=== PATIENT | female | born 1975 | race Caucasian/White ===

== ENCOUNTER 2017-01-13 17:58 | Emergency (ER) | payer SELFPAY ==
[2017-01-13 18:09] VITALS: BP 128/85
[2017-01-13 19:11] LABS: CHLORIDE,CL 103 mmol/L (98-107); SODIUM,NA 139 mmol/L (136-145)
[2017-01-13 19:28] LABS: ACETAMINOPHEN 0 ug/ml (10-30)
--- NOTE | 2017-01-14 08:04 | ER ---
Date of Service: 01/13/2017 SUBJECTIVE: Danika presents to the emergency room acutely suicidal. She had barricaded herself in residence here in [place] and was threatening to commit suicide with her boyfriend's pistol. The patient had called her mother complaining of suicidal ideation, who contacted [place] [employer], who did a welfare check on the patient. The patient has a long-standing history of bipolar disorder and has had suicide attempts in the past. Her last hospitalization was approximately 3 years ago in [place] for approximately 40 days. She states that she has been off her bipolar medications for approximately 3 months. She does have a history of bipolar disorder, but states that she has not been manic for at least 10 years. She states that typically she is extremely depressed. Current stressors are primarily due to problems with her children. She states that her 16 and 14-year-old daughter and son will not talk to her and she states that her 19-year-old son is suffering from mental illness and was suicidal this past weekend as well. She states that she did go to [place] this weekend to see family and she states that this has been extremely stressful for her. She states that she has not taken any medications or attempted to overdose with a suicide attempt. She was not belligerent with Law Enforcement and however, she was at [facility]. She did refuse to come out of the house and they did have to go into the residence to retrieve her at [facility]. PAST MEDICAL HISTORY: Bipolar disorder. Please see history of present illness. MEDICATIONS: None. ALLERGIES: Latex. REVIEW OF SYSTEMS: General: No fever or chills. HEENT: No sore throat, rhinorrhea, or congestion. Respiratory: No shortness of breath. Cardiac: Denies any substernal chest pain. No jaw, arm, neck, or back pain. GI: No nausea, vomiting, or diarrhea. No melena, hematochezia, or hematemesis. : Denies any dysuria. Musculoskeletal: No myalgias or arthralgias. PHYSICAL EXAMINATION: General: This is a 41-year-old female patient, in no acute distress. Vital Signs: Blood pressure is 128/85, pulse rate is 93, temperature is 35.9, respiratory rate 18, and O2 saturations 96%. Skin: Warm, pink, and dry. HEENT: Mouth, oral mucosa is moist. No erythema or exudate noted in the hypopharynx. Neck: Supple without masses. There is no lymphadenopathy. Lungs: Clear to auscultation. Heart: Regular rate and rhythm. Neurologic: She is alert and answers all questions appropriately. Her speech is fluent. Her gait is within normal limits. Psychiatric: She is tearful and crying, does again admit to being acutely suicidal. Her insight is otherwise normal. She is very cooperative and pleasant with ER staff. LABORATORY DATA: CBC was obtained. WBC is 10.7, hemoglobin is 14.3, platelets are 234. Chemistry, sodium is 139, potassium is 4.2, chloride is 103, bicarb is 26, BUN is 11, creatinine is 0.9. GFR is greater than 60. Glucose is 87, calcium is 9.4, corrected calcium is 9.32, total bilirubin is 0.5, AST is 18, ALT is 28, alkaline phosphatase is 104, total protein is 7.5, albumin is 4.1, TSH is 1.69, blood alcohol was less than 3. Acetaminophen level was pending as is her urinalysis and urine drug screen, and her urine hCG. ASSESSMENT: Suicidal ideation. PLAN: I did speak with Angeles, who was the screener on-call at [facility]. She spoke with Dr. Cross, who accepts the patient in transfer. The patient will be transported by [place] [employer]. Whole paperwork was filled out. All questions were answered. MWK: 01/13/2017 19:25:07 MODL: 01/13/2017 19:58:49 /[id number]
== END 2017-01-13 19:32 | disposition home or self-care (01) ==
LOC: VM.ED 17:58
DX: R45.851 Suicidal ideations (principal); F31.9 Bipolar disorder, unspecified
CPT/HCPCS: 36415; 80053; 80305; 81001; 81025; 84443; 85025; 99285; G0480; 99284-GF